=== PATIENT | female | born 1995 | race Two or more races ===

== ENCOUNTER 2022-07-19 20:03 | Emergency (ER) | payer OTHER ==
[~2022-07-19] VITALS: Ht 154.9 cm; Wt 65.8 kg
[2022-07-19] MEDS ORDERED: ONDANSETRON HCL INJ 2MG/ML 2ML 2 MG/ML VIAL IV STA (20:29)
[2022-07-19] MEDS ORDERED: FAMOTIDINE 20 MG/2 ML VIAL IV STA (20:29)
[2022-07-19] MEDS ORDERED: SODIUM CHLORIDE 0.9% 1000ML 1,000 ML IV SCH (20:30)
[2022-07-19] MEDS ORDERED: FERROUS SULFAT325 M1 PO (21:12)
[2022-07-19] MEDS ORDERED: ONDANSETRON ODT4 MG PO (21:12)
[2022-07-19] MEDS ORDERED: MACROBID 100 M100 MG PO (21:13)
== END 2022-07-19 21:45 | disposition home or self-care (01) ==
LOC: FSED 20:17
DX: R10.13 Epigastric pain (principal); N39.0 Urinary tract infection, site not specified; R11.2 Nausea with vomiting, unspecified; D64.9 Anemia, unspecified
CPT/HCPCS: 99283; J2405